=== PATIENT | female | born 1975 | race Caucasian/White ===

== ENCOUNTER 2023-12-18 16:56 | Emergency (ER) | payer BC ==
[2023-12-18 17:33] VITALS: BP 144/78; PULSE 94; RESP 16; TEMP 98.8; BMI 26.5
[2023-12-18] MEDS ORDERED: KETOROLAC TROMETHAMINE 15 MG/ML VIAL ONE (17:41)
[2023-12-18] MEDS: SODIUM CHLORIDE 0.9% 500 ML INFUS.BAG IV ONE (17:47)
[2023-12-18] MEDS: KETOROLAC TROMETHAMINE 15 MG/ML VIAL IVPUSH ONE (17:48)
[2023-12-18 17:55] LABS: HEMATOCRIT 43.1 % (32.4-45.2); HEMOGLOBIN 14.2 G/dL (10.7-15.3); MCH 28.3 pg (25.7-33.7); MEAN CELL VOLUME 85.7 fl (80-96); MEAN PLT VOLUME 8.9 fl (7.5-11.1); PLATELET COUNT 303.1 10^3/uL (134-434); RBC 5.03 10^6/uL (3.60-5.2); RDW 15.1 % (11.6-15.6); WHITE BLOOD COUNT 6.9 10^3/uL (4.0-10.8)
[2023-12-18 17:56] LABS: HCG,QUALITATIVE URINE Negative
[2023-12-18 18:07] LABS: PLATELET ESTIMATE ADEQUATE
[2023-12-18 18:09] LABS: BILIRUBIN,TOTAL 0.4 mg/dl (0.2-1); CALCIUM 9.6 mg/dl (8.5-10.1); CREATININE 0.6 mg/dl (0.6-1.3); POTASSIUM 3.2 mmol/L (3.5-5.1); TOT PROT 8.1 g/dl (6.4-8.2)
== END 2023-12-18 19:03 | disposition home or self-care (01) ==
LOC: FER 16:56
PROC: 3E0333Z Introduction of Anti-inflammatory into Peripheral Vein, Percutaneous Approach (ICD-10-PCS; principal; 2023-12-18)
DX: M54.9 Dorsalgia, unspecified (principal); R11.0 Nausea; R68.83 Chills (without fever); R10.9 Unspecified abdominal pain
CPT/HCPCS: 36415; 80053; 81003; 83690; 84484; 84703; 85027; 87086; 96374; 99284-25